=== PATIENT | male | born 1995 | race Caucasian/White ===

== ENCOUNTER 2019-10-30 10:30 | Emergency (ER) | payer SELFPAY ==
[~2019-10-30] VITALS: Ht 188 cm; Wt 110.0 kg
[2019-10-30] MEDS ORDERED: TAM75CAP PO (12:32)
[2019-10-30] MEDS ORDERED: CEPHALEXIN500 M1 PO (12:32)
[2019-10-30 13:16] LABS: HEMATOCRIT 48.2 % (39.0-50.0); HEMOGLOBIN 15.7 g/dl (14.0-18.0); IMMATURE GRANULOCYTES 0.4 % (0.0-5.0); MEAN CELL VOLUME 88.1 fL CALC (80.0-100.0); MEAN CORPUSCULAR HGB 28.7 pG CALC (26.0-32.0); MEAN CORPUSCULAR HGB CONC 32.6 g/L CALC (32.0-36.0); NEUT# 3.86 thou/uL (1.82-7.42); RED BLOOD COUNT 5.47 mill/uL (4.70-6.10); RED CELL DISTRI WIDTH 13.2 % (11.5-15.5)
[2019-10-30 13:31] LABS: ANION GAP 17 (6-22 (CALC)); BUN 14 mg/dL (9-20); BUN/CREATININE RATIO 12 (12-20 (CALC)); CARBON DIOXIDE 24 mmol/l (22-30); CHLORIDE 101 mmol/l (95-108); CREATININE 1.1 mg/dL (0.7-1.3); GFR > 60 ML/MIN (>=60 (CALC)); GFR FOR AFR.AMER. > 60 ML/MIN (>=60 (CALC)); SODIUM 138 mmol/l (137-146)
[2019-10-30 14:10] VITALS: BP 117/75
== END 2019-10-30 14:01 | disposition home or self-care (01) | DRG 605 ==
LOC: ED 10:30
PROVIDERS: Family Medicine
PROC: 0HQ0XZZ Repair Scalp Skin, External Approach (ICD-10-PCS; principal; 2019-10-30)
DX: S01.01XA Laceration without foreign body of scalp, initial encounter (principal); J11.1 Influenza due to unidentified influenza virus with other respiratory manifestations; W01.190A Fall on same level from slipping, tripping and stumbling with subsequent striking against furniture, initial encounter; Y92.009 Unspecified place in unspecified non-institutional (private) residence as the place of occurrence of the external cause